=== PATIENT | male | born 1960 | race Two or more races ===

== ENCOUNTER 2019-05-06 12:01 | Emergency (ER) | payer SELFPAY ==
[~2019-05-06] VITALS: Ht 175.3 cm; Wt 78.0 kg
[2019-05-06] MEDS ORDERED: MORPHINE SULFATE 4 MG/ML SYRINGE IVP ONE (12:15)
[2019-05-06] MEDS ORDERED: MIDAZOLAM HCL 5 MG/ML VIAL IVP ONE (12:30)
[2019-05-06] MEDS ORDERED: FentaNYL CITRATE-PF 100 MCG/2 ML VIAL IVP ONE (12:30)
[2019-05-06] MEDS ORDERED: FLUMAZENIL 0.1 MG/ML 5 ML VIAL IVP ONE (12:31)
[2019-05-06] MEDS ORDERED: NALOXONE HCL 1 MG/ML 2 ML SYG ONE (12:31)
[2019-05-06 13:40] VITALS: BP 166/121
== END 2019-05-06 14:23 | disposition home or self-care (01) ==
LOC: EMS 12:08
DX: S43.015A Anterior dislocation of left humerus, initial encounter (principal); W18.39XA Other fall on same level, initial encounter; Y93.89 Activity, other specified; Y92.89 Other specified places as the place of occurrence of the external cause; Y99.8 Other external cause status
CPT/HCPCS: 23650; 73030; 96374; 99285; J2250; J2270; J3010; G0238; J2310; J3490